=== PATIENT | female | born 1965 | race Caucasian/White ===

== ENCOUNTER 2016-08-31 13:23 | Emergency (ER) | payer OTHER ==
[~2016-08-31] VITALS: Ht 160 cm; Wt 46.3 kg
[~2016-08-31 13:23] MED LIST: HYDR-34 PO
--- NOTE | 2016-08-31 14:04 | ED Trauma-Multisystem ---
General Chief Complaint: Trauma-Non Activation Stated Complaint: FALL/HEAD INJ Nursing Triage Note: SEE TRIAGE NOTE Source of Information: Patient Exam Limitations: No Limitations History of Present Illness Time Seen by Provider: 13:59 Initial Comments The patient is a 51-year-old white female who was using her [employer] board. She reports that she was doing great until she wasn't. She fell off striking the back of her head and her left elbow. She does not believe she had any loss of consciousness. Location Injury Occurred: HEAD ELBOW Occurred: Just Prior to Arrival Pain/Injury Location: Head, Upper Extremity Method of Injury: Fall Loss of Consciousness: No Loss of Consciousness Associated Symptoms (Fall): Denies Symptoms Allergies and Home Medications Allergies Uncoded Allergies: CODIENE (Adverse Reaction, Mild, nausea, 03/04/10) Home Medications No Active Prescriptions or Reported Meds Constitutional: see HPI Eyes: No Symptoms Reported Ears: No Symptoms Reported Nose: No Symptoms Reported Mouth: No Symptoms Reported Throat: No Symptoms to Report Respiratory: no symptoms reported Cardiovascular: No Symptoms Reported Gastrointestinal: no symptoms reported Genitourinary: no symptoms reported Musculoskeletal: joint pain Skin: no symptoms reported Psychiatric/Neurological: No Symptoms Reported Past Kedttcr-Euypaj-Hxdhsd Hx Patient Social History Alcohol Use: Denies Use Recreational Drug Use: No Smoking Status: Current Everyday Smoker Recent Foreign Travel: No Contact w/Someone Who Travel: No Recent Infectious Disease Expo: No Recent Hopitalizations: No Seasonal Allergies Seasonal Allergies: No Surgeries HX Surgeries: No Respiratory Hx Respiratory Disorders: No Cardiovascular Hx Cardiac Disorders: No Neurological Hx Neurological Disorders: No Genitourinary Hx Genitourinary Disorders: No Musculoskeletal Hx Musculoskeletal Disorders: No Endocrine Hx Endocrine Disorders: No HEENT HX ENT Disorders: No Cancer Hx Cancer: No Psychosocial Hx Psychiatric Problems: No Physical Exam Vital Signs Vital Sign - Last 12Hours 08/31/16 13:36 Pulse 83 Resp 18 B/P 118/74 Pulse Ox 100 O2 Delivery Room Air General Appearance: Mild Distress Head: Tenderness Eyes: Bilateral Eye Normal Inspection Ears, Nose, Throat: Hearing Grossly Normal Neck: Full Range of Motion Respiratory: Chest Non Tender Gastrointestinal: Normal Bowel Sounds Back: Normal Inspection Extremity: Normal Capillary Refill Normal Inspection Other (tenderness to palpation posterior mid scalp) Neurologic/Psychiatric: Alert Oriented x3 No Motor/Sensory Deficits Progress/Results/Core Measures Results/Orders My Orders Orders-HEATHER XIONG MD Ct Head Wo (08/31/16 13:56) Elbow, Left, 3 Views (08/31/16 13:56) Vital Signs/I&O Vital Sign - Last 12Hours 08/31/16 13:36 Pulse 83 Resp 18 B/P 118/74 Pulse Ox 100 O2 Delivery Room Air Blood Pressure Mean: 89 Departure Communication Progress Notes Plain film of the left elbow and CT of the head are negative Impression Impression: Primary Impression: contusion posterior scalp Additional Impression: contusion left elbow Disposition: 01 HOME, SELF-CARE Condition: Stable/Unchanged Departure-Patient Inst. Decision time for Depature: 15:02 Referrals: [facility] (PCP/Family) Primary Care Physician Add. Discharge Instructions: All discharge instructions reviewed with patient and/or family. Voiced understanding. Use ice packs to elbow and posterior scalp You may use ibuprofen or naproxen for pain Scripts No Active Prescriptions or Reported Meds HEATHER XIONG MD Aug 31, 2016 14:04
--- NOTE | 2016-08-31 14:22 | Diagnostic Imaging Report ---
PROCEDURE: CT head without contrast. TECHNIQUE: Multiple contiguous axial images were obtained through the brain without the use of intravenous contrast. INDICATION: Fall. Struck right side of head. FINDINGS: There is no evidence of intracranial hemorrhage. No mass effect. 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 The cortical gyral pattern appears normal. There is no mass effect. Basal cisterns are clear. Bone windows show the mastoid air cells to be clear. There is mucosal edema in the ethmoid sinuses. There are no calvarial fractures. IMPRESSION: 1. No acute intracranial abnormalities. 2. There is mild edema of the ethmoid sinuses. 3. 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 Dictated by: Dictated on workstation # [id number]
--- NOTE | 2016-08-31 14:35 | Diagnostic Imaging Report ---
INDICATION: Left elbow pain. FINDINGS: Two views show no fractures or dislocations. The radius and ulna are in good alignment with capitellum and trochlea. There is no joint effusion. IMPRESSION: Normal left elbow. Dictated by: Dictated on workstation # [id number]
[2016-08-31 15:11] VITALS: BP 111/77
== END 2016-08-31 15:11 | disposition home or self-care (01) ==
LOC: EDUNIT# 13:23 → ER 13:24
DX: S00.93XA Contusion of unspecified part of head, initial encounter (principal); S50.02XA Contusion of left elbow, initial encounter; F17.210 Nicotine dependence, cigarettes, uncomplicated; V00.131A Fall from skateboard, initial encounter; Y99.8 Other external cause status
CPT/HCPCS: 70450; 73080; 99282